=== PATIENT | male | born 1990 | race Caucasian/White ===

== ENCOUNTER 2017-02-11 01:27 | Emergency (ER) | payer OTHER ==
[2017-02-11] MEDS ORDERED: Acetaminophen/HYDROcodone 325-5 MG Tab PO ONE ×2 (01:50→01:55)
--- NOTE | 2017-02-11 01:51 | EDM.PDOC ---
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 Pt denied visual changes but as pain at his left eye when opening and closing his left eye. No other acute medical issues. Onset: Today Onset Date: 02/11/17 Onset Time: 01:05 Duration: Minutes:, Constant Location: Reports: Face Quality: Reports: Ache, Burning Severity: Mild Improves with: Reports: Rest Worsens with: Reports: Movement Context: Reports: Other (metal in left eye while grinding metal. ) Associated Symptoms: Reports: No Other Symptoms - Related Data Allergies Allergy/AdvReac Type Severity Reaction Status Date / Time No Known Allergies Allergy Verified 11/19/13 22:45 Home Meds: Home Meds NK [No Known Home Meds] 11/19/13 [History] Past Medical History - Past Health History Medical/Surgical History: Denies Medical/Surgical History Social & Family History - Tobacco Use Years of Tobacco use: 2 ED ROS GENERAL - Review of Systems Review Of Systems: See Below Constitutional: Reports: No Symptoms HEENT: Reports: Eye Pain Respiratory: Reports: No Symptoms Cardiovascular: Reports: No Symptoms Endocrine: Reports: No Symptoms GI/Abdominal: Reports: No Symptoms : Reports: No Symptoms Musculoskeletal: Reports: No Symptoms Skin: Reports: No Symptoms Neurological: Reports: No Symptoms Psychiatric: Reports: No Symptoms Hematologic/Lymphatic: Reports: No Symptoms Immunologic: Reports: No Symptoms ED EXAM GENERAL W FULL EYE - Physical Exam Exam: See Below Exam Limited By: No Limitations General Appearance: Alert, WD/WN, Mild Distress Eye Exam: Left Eye: Foreign Body (metal, imbedded in center of left cornea), Bilateral Eye: EOMI Cornea Exam: Left: Foreign Body (1 mm metallic FB center left cornea) Extraocular Movements: Bilateral: Intact Pupils: Normal Accommodation Pupillary Size: Bilateral: 3 mm Pupillary Reaction: Bilateral: Brisk Anterior Chamber: Bilateral: Normal Appearance Ears: Normal External Exam Nose: Normal Inspection Throat/Mouth: Normal Inspection Head: Atraumatic, Normocephalic Neck: Normal Inspection, Supple Respiratory/Chest: No Respiratory Distress, Lungs Clear Cardiovascular: Normal Peripheral Pulses, Regular Rate, Rhythm GI/Abdominal: Normal Bowel Sounds, Soft, Non-Tender (Male) Exam: Deferred Rectal (Males) Exam: Deferred Back Exam: Normal Inspection, Full Range of Motion Extremities: Normal Inspection, Normal Range of Motion Neurological: Alert, Oriented, CN II-XII Intact, Normal Cognition, Normal Gait Psychiatric: Normal Affect, Normal Mood Skin Exam: Warm, Dry, Intact, Normal Color, No Rash Lymphatic: No Adenopathy ED EYE w/ Add Procedure - Eye Procedure Alcaine Drops Administered: Yes Eye FB Removal: Removal w/ Cotton Swab, Other (unable to remove FB, was deeply imbedded left cornea) Antibiotic Oinment/Drps Admin: Left Eye (Gentamycin) Course - Vital Signs Text/Narrative:: 26 y.o.w.m 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 Pt denied visual changes but as pain at his left eye when opening and closing his left eye. No other acute medical issues. Instructor Bridge refused a UDS here in the ed. UDS will be done at his work place. PE: 26 y.o.w. m with a FB left cornea, photophobia Procedure: Please see note above. Impression: Metallic FB left center of cornea Tx: Alcain eye drops for pain in order to examine left cornea, using Fluoro. stip Sutton Reexam: Improved, Plan: d/c'd with instructions. Last Recorded V/S: Last Vital Signs Temp 36.6 C 02/11/17 02:03 Pulse 70 02/11/17 02:03 Resp 16 02/11/17 02:03 BP 123/78 02/11/17 02:03 Pulse Ox - Orders/Labs/Meds Meds: Medications Discontinued Medications Generic Name Dose Route Start Last Admin Trade Name Javierq PRN Reason Stop Dose Admin Hydrocodone Bitart/Acetaminophen 1 tab 02/11/17 01:50 02/11/17 01:59 Sutton 325-5 Mg PO 02/11/17 01:51 1 tab ONETIME ONE Administration Departure - Departure Time of Disposition: 01:51 Disposition: Home, Self-Care 01 Condition: Good Clinical Impression: Foreign body in cornea, left eye, initial encounter - Discharge Information Referrals: PCP,None [Primary Care Provider] - Additional Instructions: Please see an eye doctor in am. Please take norco for severe pain, Please apply Gentamicin eyedrops to left eyd every 8 hours. Please come back if your symptoms get worse acutely
[2017-02-11] MEDS ORDERED: Gentamicin 0.3% Ophth Soln 5 ML Bottle ONE (01:55)
[2017-02-11 02:05] VITALS: BP 123/78
== END 2017-02-11 02:20 | disposition home or self-care (01) ==
LOC: FB.ED 01:27
DX: T15.02XA Foreign body in cornea, left eye, initial encounter (principal); X58.XXXA Exposure to other specified factors, initial encounter
CPT/HCPCS: 99282; A9270